=== PATIENT | male | born 1985 | race Caucasian/White ===

== ENCOUNTER → 2016-10-29 | Outpatient (CLI) | payer BC | LOC: MW.CHRC 13:40 | PROVIDERS: ATTEND Family Medicine | DX: J00 Acute nasopharyngitis [common cold] (principal) | CPT/HCPCS: 87804 ==

== ENCOUNTER 2022-03-17 20:26 | Emergency (ER) | payer BC ==
[2022-03-17 21:17] VITALS: BP 125/85; PULSE 124
== END 2022-03-17 21:24 ==
LOC: MW.ED 20:26
DX: Z02.89 Encounter for other administrative examinations (principal); Z88.0 Allergy status to penicillin
CPT/HCPCS: 99281; 99283